=== PATIENT | male | born 1955 | race Caucasian/White ===

== ENCOUNTER 2016-07-31 15:14 | Inpatient (IN) | payer SELFPAY ==
[~2016-07-31] VITALS: Ht 185.4 cm; Wt 83.1 kg
[2016-07-31] MEDS ORDERED: OPTIRAY 350 100 ML VIAL HMH IV ONE (15:15)
[2016-07-31] MEDS ORDERED: DUONEB INH ONE (18:49)
[2016-07-31] MEDS ORDERED: AZITHROMYCIN 500 MG VIAL IV ONE (21:03)
[2016-07-31] MEDS ORDERED: METHYLPRED SOD SUCC 125 MG/2 ML VIAL ONE (21:03)
[2016-07-31] MEDS ORDERED: CEFTRIAXONE 1 GM VIAL ONE (21:03)
[2016-07-31] MEDS ORDERED: SODIUM CHLORIDE 0.9% 250 ML IV ONE (21:03)
[2016-07-31] MEDS ORDERED: SODIUM CHLORIDE 0.9% 100 ML IV ONE (21:04)
[2016-07-31] MEDS ORDERED: SALINE FLUSH 10 ML FLUSH PRN (21:55)
[2016-07-31] MEDS ORDERED: Furosemide 40 MG/4 ML VIAL IV ONE (22:35)
[2016-07-31 23:00] VITALS: BP_SYST 136; RESP 22; TEMP 97.3
[2016-07-31] MEDS ORDERED: NEB-ALBUTEROL 2.5 MG/3 ML INH PRN (23:00)
[2016-07-31 23:01] VITALS: BP_SYST 128
[2016-07-31] MEDS ORDERED: ACETAMINOPHEN 325 MG TAB PO PRN (23:25)
[2016-08-01] VITALS (7 sets, daily range): BP systolic 127–153; RESP 18–22; TEMP 97.5–98.3; Ht 185.4 cm; Wt 83.1 kg
[2016-08-01] MEDS: SODIUM CHLORIDE 0.9% FLUSH BAG 500 ML IV SCH (06:06)
[2016-08-01] MEDS: ASPIRIN EC 81 MG TAB PO SCH (09:25)
[2016-08-01] MEDS: PREDNISONE 20 MG TAB PO SCH (09:25)
[2016-08-01] MEDS: AZITHROMYCIN 250 MG TAB PO SCH (09:25)
[2016-08-01] MEDS: Furosemide 40 MG/4 ML VIAL IV SCH ×2 (09:25→17:22)
[2016-08-01] MEDS: SALINE FLUSH 10 ML FLUSH SCH ×2 (09:25→22:20)
[2016-08-01] MEDS: CEFTRIAXONE 1 GM in SODIUM CHLORIDE 0.9% 50 ML IV SCH (09:26)
[2016-08-01] MEDS: ENOXAPARIN 40 MG/0.4 ML SYR SUBQ SCH (09:26)
[2016-08-01] MEDS: TEMAZEPAM 7.5 MG CAP PO PRN (22:20)
[2016-08-01] MEDS: Atorvastatin 40 MG TAB PO SCH (22:20)
[2016-08-02] MEDS: SODIUM CHLORIDE 0.9% FLUSH BAG 500 ML IV SCH (05:27)
[2016-08-02 07:54] VITALS: BP_SYST 129; RESP 18; TEMP 97.9
[2016-08-02] MEDS: Furosemide 40 MG/4 ML VIAL IV SCH ×2 (08:18→17:32)
[2016-08-02] MEDS: SALINE FLUSH 10 ML FLUSH SCH ×2 (08:18→21:50)
[2016-08-02] MEDS: PREDNISONE 20 MG TAB PO SCH (08:19)
[2016-08-02] MEDS: AZITHROMYCIN 250 MG TAB PO SCH (08:19)
[2016-08-02] MEDS: ENOXAPARIN 40 MG/0.4 ML SYR SUBQ SCH (08:19)
[2016-08-02] MEDS: CEFTRIAXONE 1 GM in SODIUM CHLORIDE 0.9% 50 ML IV SCH (08:19)
[2016-08-02] MEDS: ASPIRIN EC 81 MG TAB PO SCH (08:19)
[2016-08-02] MEDS ORDERED: DIGOXIN 0.5 MG/2 ML AMP IV ONE (10:55)
[2016-08-02 11:14] VITALS: BP_SYST 132; RESP 18; TEMP 97.9
[2016-08-02] MEDS: LISINOPRIL 2.5 MG TAB PO SCH ×2 (12:15→21:51)
[2016-08-02] MEDS: Carvedilol 3.125 MG TAB PO SCH ×2 (12:15→21:50)
[2016-08-02] MEDS: LORAZEPAM 0.5 MG TAB PO PRN ×2 (14:37→21:51)
[2016-08-02 15:55] VITALS: BP_SYST 130; RESP 18; TEMP 98.2
[2016-08-02 19:00] VITALS: BP_SYST 152; RESP 18; TEMP 98.3
[2016-08-02] MEDS: TEMAZEPAM 7.5 MG CAP PO PRN (21:50)
[2016-08-02] MEDS: Atorvastatin 40 MG TAB PO SCH (21:51)
[2016-08-02 23:20] VITALS: BP_SYST 128; RESP 18; TEMP 97.4
[2016-08-03 03:30] VITALS: BP_SYST 127; RESP 18; TEMP 98.2
[2016-08-03] MEDS: SODIUM CHLORIDE 0.9% FLUSH BAG 500 ML IV SCH (06:22)
[2016-08-03] MEDS ORDERED: LEXISCAN 0.4 MG/5 ML SYRINGE IV ONE (09:00)
[2016-08-03] MEDS ORDERED: MISSING DOSE XX ONE (10:55)
[2016-08-03] MEDS: DIGOXIN 0.125 MG TAB PO SCH (11:05)
[2016-08-03] MEDS: ASPIRIN EC 81 MG TAB PO SCH (11:05)
[2016-08-03] MEDS: PREDNISONE 20 MG TAB PO SCH (11:06)
[2016-08-03] MEDS: SPIRONOLACTONE 25 MG TAB PO SCH (11:06)
[2016-08-03] MEDS: LISINOPRIL 2.5 MG TAB PO SCH (11:06)
[2016-08-03] MEDS: Carvedilol 3.125 MG TAB PO SCH ×2 (11:06→20:53)
[2016-08-03] MEDS: AZITHROMYCIN 250 MG TAB PO SCH (11:06)
[2016-08-03] MEDS: ENOXAPARIN 40 MG/0.4 ML SYR SUBQ SCH (11:07)
[2016-08-03] MEDS: Furosemide 40 MG/4 ML VIAL IV SCH (11:07)
[2016-08-03] MEDS: SALINE FLUSH 10 ML FLUSH SCH ×2 (11:07→20:53)
[2016-08-03] MEDS: CEFTRIAXONE 1 GM in SODIUM CHLORIDE 0.9% 50 ML IV SCH (11:08)
[2016-08-03 11:20] VITALS: BP_SYST 128; RESP 18; TEMP 97.7
[2016-08-03] MEDS ORDERED: SALINE FLUSH 10 ML FLUSH PRN (12:30)
[2016-08-03] MEDS ORDERED: LORAZEPAM 0.5 MG TAB PO PRN (12:30)
[2016-08-03 15:47] VITALS: BP_SYST 120; RESP 18; TEMP 97.9
[2016-08-03] MEDS: Furosemide 40 MG TAB PO SCH (17:17)
[2016-08-03 19:00] VITALS: BP_SYST 136; RESP 18; TEMP 98.1
[2016-08-03] MEDS ORDERED: SALINE FLUSH 10 ML FLUSH SCH (20:00)
[2016-08-03] MEDS: LISINOPRIL 5 MG TAB PO SCH (20:52)
[2016-08-03] MEDS: LORAZEPAM 0.5 MG TAB PO PRN (20:52)
[2016-08-03] MEDS: Atorvastatin 40 MG TAB PO SCH (20:53)
[2016-08-03] MEDS ORDERED: TEMAZEPAM 7.5 MG CAP PO PRN (21:00)
[2016-08-03] MEDS ORDERED: TEMAZEPAM 15 MG CAP PO PRN (21:00)
[2016-08-03 23:24] VITALS: BP_SYST 135; RESP 18; TEMP 97.3
[2016-08-04 03:17] VITALS: BP_SYST 132; RESP 18; TEMP 97.9
[2016-08-04] MEDS ORDERED: SODIUM CHLORIDE 0.9% FLUSH BAG 500 ML IV SCH (06:00)
[2016-08-04] MEDS: SODIUM CHLORIDE 0.9% FLUSH BAG 500 ML IV SCH (06:07)
[2016-08-04] MEDS ORDERED: LIDOCAINE 2% 20 ML ONE (07:00)
[2016-08-04] MEDS ORDERED: MIDAZOLAM 2 MG/2 ML INJ ONE (07:00)
[2016-08-04] MEDS ORDERED: FENTANYL 100 MCG/2 ML AMP ONE (07:00)
[2016-08-04] MEDS ORDERED: METOPROLOL 5 MG/5 ML VIAL IV ONE (07:00)
[2016-08-04 07:37] VITALS: BP_SYST 135; RESP 18; TEMP 97.8
[2016-08-04] MEDS: SALINE FLUSH 10 ML FLUSH SCH (11:04)
[2016-08-04] MEDS: CEFTRIAXONE 1 GM in SODIUM CHLORIDE 0.9% 50 ML IV SCH (11:04)
[2016-08-04] MEDS: Furosemide 40 MG TAB PO SCH (11:05)
[2016-08-04] MEDS: ASPIRIN EC 81 MG TAB PO SCH (11:05)
[2016-08-04] MEDS: PREDNISONE 20 MG TAB PO SCH (11:05)
[2016-08-04] MEDS: SPIRONOLACTONE 25 MG TAB PO SCH (11:11)
[2016-08-04] MEDS: LORAZEPAM 0.5 MG TAB PO PRN (11:12)
[2016-08-04] MEDS: Carvedilol 3.125 MG TAB PO SCH (11:12)
[2016-08-04] MEDS: AZITHROMYCIN 250 MG TAB PO SCH (11:12)
[2016-08-04] MEDS: LISINOPRIL 5 MG TAB PO SCH (11:13)
[2016-08-04 11:30] VITALS: BP_SYST 125; RESP 18; TEMP 97.9
[2016-08-04] MEDS ORDERED: ONDANSETRON 4 MG VIAL IV PRN (11:45)
[2016-08-04] MEDS ORDERED: SALINE FLUSH 10 ML FLUSH PRN (11:45)
[2016-08-04] MEDS ORDERED: MIDAZOLAM 2 MG/2 ML INJ IV ONE (11:45)
[2016-08-04] MEDS ORDERED: ATROPINE 1 MG/10 ML SYRINGE IV PRN (11:45)
[2016-08-04] MEDS ORDERED: LIDOCAINE 2% 20 ML SUBQ ONE (11:45)
[2016-08-04] MEDS ORDERED: DEXTROSE 5% SALINE 0.45% 1,000 ML IV SCH (11:45)
[2016-08-04] MEDS ORDERED: MORPHINE 2 MG/ML SYR IV ONE (11:45)
[2016-08-04] MEDS ORDERED: MIDAZOLAM 2 MG/2 ML INJ IV PRN (11:45)
[2016-08-04 12:33] VITALS: BP_SYST 125; RESP 18; TEMP 97.9
[2016-08-04] MEDS: DIGOXIN 0.125 MG TAB PO SCH (13:30)
[2016-08-04] MEDS ORDERED: SALINE FLUSH 10 ML FLUSH SCH (20:00)
[2016-08-05] MEDS ORDERED: SODIUM CHLORIDE 0.9% FLUSH BAG 500 ML IV SCH (06:00)
== END 2016-08-04 15:35 | disposition short-term general hospital (02) | DRG 286 ==
LOC: ENRESERVDT → ENRESERVTM → ER 15:14 → EMR 21:19 → ENPENDDIS 21:19 → PCU2 22:06
PROVIDERS: ADMIT Internal Medicine; ATTEND Internal Medicine
PROC: 4A023N7 Measurement of Cardiac Sampling and Pressure, Left Heart, Percutaneous Approach (ICD-10-PCS; principal; 2016-08-04)
PROC: B2111ZZ Fluoroscopy of Multiple Coronary Arteries using Low Osmolar Contrast (ICD-10-PCS; 2016-08-04)
PROC: B2151ZZ Fluoroscopy of Left Heart using Low Osmolar Contrast (ICD-10-PCS; 2016-08-04)
DX: I50.21 Acute systolic (congestive) heart failure (principal); J18.9 Pneumonia, unspecified organism; J44.0 Chronic obstructive pulmonary disease with (acute) lower respiratory infection; R00.0 Tachycardia, unspecified; F17.290 Nicotine dependence, other tobacco product, uncomplicated; R59.9 Enlarged lymph nodes, unspecified; F41.9 Anxiety disorder, unspecified; I27.2 Other secondary pulmonary hypertension; I35.0 Nonrheumatic aortic (valve) stenosis; I25.10 Atherosclerotic heart disease of native coronary artery without angina pectoris; I34.0 Nonrheumatic mitral (valve) insufficiency; Z79.82 Long term (current) use of aspirin
CPT/HCPCS: 36415; 71010; 71260; 78452; 80048; 80053; 80061; 82553; 83605; 83880; 84439; 84443; 84484; 85014; 85018; 85025; 85379; 85610; 87040; 93005; 93017; 93306; 93458; 94640; 94799; 96374; 96375; 99222; 99232; 99233; 99239